=== PATIENT | female | born 1950 ===

== ENCOUNTER 2021-02-21 06:36 | Day surgery (SDC) | payer OTHER | END 2021-02-21 12:05 | disposition home or self-care (01) | LOC: AMB-ENDOS 06:36 | PROVIDERS: ATTEND Colon & Rectal Surgery | DX: D12.2 Benign neoplasm of ascending colon (principal); K64.1 Second degree hemorrhoids; Z20.822 Contact with and (suspected) exposure to COVID-19 ==